=== PATIENT | male | born 1985 | race African-American/Black ===

== ENCOUNTER 2021-08-16 11:49 | Emergency (ER) | payer MEDICAID ==
[~2021-08-16] VITALS: Ht 175.3 cm; Wt 73.0 kg
[2021-08-16 12:15] VITALS: BP 133/74
[2021-08-16] MEDS ORDERED: IBUPROFEN 600MG TABLET PO ONE (12:15)
[2021-08-16] MEDS ORDERED: KETOROLAC 15MG/ML VIAL IM ONE (13:45)
== END 2021-08-16 13:59 | disposition home or self-care (01) ==
LOC: ER 11:49
DX: M54.2 Cervicalgia (principal); R07.0 Pain in throat
CPT/HCPCS: 70360; 96372; 99283; J1885

== ENCOUNTER 2021-11-20 17:11 | Emergency (ER) | payer MEDICAID ==
[~2021-11-20] VITALS: Ht 180.3 cm; Wt 84.0 kg
[2021-11-20] MEDS ORDERED: BENZ-16 MT (18:39)
[2021-11-20 18:45] VITALS: BP 111/65
== END 2021-11-20 18:45 | disposition home or self-care (01) ==
LOC: ER 17:11
DX: R05.9 Cough, unspecified (principal); Z20.822 Contact with and (suspected) exposure to COVID-19; Z88.0 Allergy status to penicillin
CPT/HCPCS: 71045; 87426; 99284; C9803